=== PATIENT | female | born 1995 ===

== ENCOUNTER → 2022-01-29 13:29 | Observation (INO) ==
[2022-01-29 10:40] LABS: Bacteria,Urine Few per hpf (None-Few); Bilirubin,Urine Negative (Negative); Blood,Urine Negative (Negative); Clarity,Urine Turbid (Clear); Color,Urine Light-Yellow (Yellow); Glucose,Urine (UA) Normal (Normal); Ketones,Urine Negative (Negative); Leukocyte Esterase,Urine Large (Negative); Mucus,Urine Few per lpf (None-Few); Nitrite,Urine Negative (Negative); Protein,Urine Trace mg/dL (Neg-Trace); RBC,Urine 0-3 per hpf (0-3); Specific Gravity,Urine 1.014 (1.010-1.025); Squamous Epithelial Cell,Urine Moderate per hpf (None-Few); Urobilinogen,Urine Normal (Normal)
[2022-01-29 11:48] LABS: Protein/Creatinine Ratio,Urine 0.21 mg/mg (0.00-0.20)
[2022-01-29 12:04] LABS: Basophils # 0.1 K/mcL (0.0-0.2); Basophils % 0.3 %; Eosinophils # 0.2 K/mcL (0.0-0.6); Eosinophils % 1.4 %; Hematocrit 38.4 % (35.3-44.9); Hemoglobin 12.6 g/dL (11.5-15.4); Immature Granulocytes % 1.1 % (0-4); Lymphocytes # 2.7 K/mcL (0.6-4.6); Lymphocytes % 17.3 %; Mean Corpuscular HGB Conc 32.8 g/dL (31.6-35.5); Mean Corpuscular Hemoglobin 27.9 pg (28.0-33.3); Mean Platelet Volume 9.6 fL (9.4-12.4); Monocytes # 0.6 K/mcL (0.0-1.3); Monocytes % 3.6 %; Platelet Count 262 K/mcL (140-400); Red Blood Count 4.52 M/mcL (3.82-4.97); Red Cell Distribution Width 12.9 % (11.5-14.5); Segmented Neutrophils % 76.3 %; White Blood Count 15.7 K/mcL (4.3-11.1)
[2022-01-29 12:36] LABS: Alanine Aminotransferase 20 Units/L (7-52); Aspartate Amino Transferase 15 Units/L (13-39); BUN/Creatinine Ratio 13 (6-26); Blood Urea Nitrogen 7 mg/dL (6-20); Lactate Dehydrogenase 191 Units/L (140-271); Uric Acid 4.8 mg/dL (2.3-7.6); eGFR For African Americans > 60 (> 60); eGFR For Non-African Americans > 60 (> 60)
== END | disposition home or self-care (01) ==
LOC: 1NENULAB
PROVIDERS: ADMIT Obstetrics & Gynecology; ATTEND Obstetrics & Gynecology

== ENCOUNTER → 2022-01-31 12:14 | Observation (INO) ==
[2022-01-31 11:02] LABS: Bacteria,Urine Few per hpf (None-Few); Bilirubin,Urine Negative (Negative); Blood,Urine Negative (Negative); Clarity,Urine Turbid (Clear); Color,Urine Light-Yellow (Yellow); Glucose,Urine (UA) Normal (Normal); Ketones,Urine Negative (Negative); Leukocyte Esterase,Urine Large (Negative); Nitrite,Urine Negative (Negative); PH,Urine 7.5 pH Units (5.0-8.0); Protein,Urine Negative (Neg-Trace); RBC,Urine 0-3 per hpf (0-3); Specific Gravity,Urine 1.008 (1.010-1.025); Squamous Epithelial Cell,Urine Few per hpf (None-Few); Urobilinogen,Urine Normal (Normal)
[2022-01-31 11:15] LABS: Basophils # 0.1 K/mcL (0.0-0.2); Basophils % 0.4 %; Eosinophils # 0.2 K/mcL (0.0-0.6); Eosinophils % 1.8 %; Hematocrit 38.8 % (35.3-44.9); Hemoglobin 12.5 g/dL (11.5-15.4); Immature Granulocytes % 1.1 % (0-4); Lymphocytes # 2.6 K/mcL (0.6-4.6); Lymphocytes % 19.4 %; Mean Corpuscular HGB Conc 32.2 g/dL (31.6-35.5); Mean Corpuscular Hemoglobin 27.2 pg (28.0-33.3); Mean Corpuscular Volume 84.5 fL (83.0-100.0); Mean Platelet Volume 9.6 fL (9.4-12.4); Monocytes # 0.6 K/mcL (0.0-1.3); Monocytes % 4.2 %; Neutrophils # 9.7 K/mcL (1.6-8.9); Platelet Count 280 K/mcL (140-400); Red Blood Count 4.59 M/mcL (3.82-4.97); Red Cell Distribution Width 12.9 % (11.5-14.5); Segmented Neutrophils % 73.1 %; White Blood Count 13.3 K/mcL (4.3-11.1)
[2022-01-31 11:20] LABS: Protein/Creatinine Ratio,Urine 0.18 mg/mg (0.00-0.20)
[2022-01-31 11:30] LABS: Alanine Aminotransferase 22 Units/L (7-52); Aspartate Amino Transferase 16 Units/L (13-39); BUN/Creatinine Ratio 13 (6-26); Blood Urea Nitrogen 7 mg/dL (6-20); Lactate Dehydrogenase 203 Units/L (140-271); Uric Acid 4.6 mg/dL (2.3-7.6); eGFR For African Americans > 60 (> 60); eGFR For Non-African Americans > 60 (> 60)
[~2022-01-31 12:14] MED LIST: Nitrofurantoin (BID) 100 MG CAPSULE PO ONE; Nitrofurantoin (BID) 100 MG CAPSULE PO SCH
== END | disposition home or self-care (01) ==
LOC: 1NENULAB
PROVIDERS: ADMIT Student in an Organized Health Care Education/Training Program; ATTEND Student in an Organized Health Care Education/Training Program

== ENCOUNTER → 2022-02-07 13:05 | Observation (INO) ==
[2022-02-07 01:44] LABS: Bacteria,Urine Few per hpf (None-Few); Basophils % 0.3 %; Bilirubin,Urine Negative (Negative); Blood,Urine Negative (Negative); Clarity,Urine Clear (Clear); Color,Urine Yellow (Yellow); Eosinophils # 0.3 K/mcL (0.0-0.6); Eosinophils % 1.9 %; Glucose,Urine (UA) Normal (Normal); Hematocrit 36.5 % (35.3-44.9); Hemoglobin 11.9 g/dL (11.5-15.4); Immature Granulocytes % 0.8 % (0-4); Ketones,Urine 20 mg/dL (Negative); Leukocyte Esterase,Urine Moderate (Negative); Lymphocytes # 2.7 K/mcL (0.6-4.6); Lymphocytes % 18.1 %; Mean Corpuscular HGB Conc 32.6 g/dL (31.6-35.5); Mean Corpuscular Hemoglobin 27.6 pg (28.0-33.3); Mean Corpuscular Volume 84.7 fL (83.0-100.0); Mean Platelet Volume 10.3 fL (9.4-12.4); Monocytes # 0.6 K/mcL (0.0-1.3); Monocytes % 3.8 %; Mucus,Urine Few per lpf (None-Few); Neutrophils # 11.4 K/mcL (1.6-8.9); Nitrite,Urine Negative (Negative); PH,Urine 6.5 pH Units (5.0-8.0); Platelet Count 274 K/mcL (140-400); Protein,Urine Trace mg/dL (Neg-Trace); RBC,Urine 0-3 per hpf (0-3); Red Blood Count 4.31 M/mcL (3.82-4.97); Red Cell Distribution Width 13.2 % (11.5-14.5); Segmented Neutrophils % 75.1 %; Squamous Epithelial Cell,Urine Few per hpf (None-Few); Urobilinogen,Urine Normal (Normal); White Blood Count 15.2 K/mcL (4.3-11.1)
[2022-02-07 01:52] LABS: Protein/Creatinine Ratio,Urine 0.11 mg/mg (0.00-0.20)
[2022-02-07 02:03] LABS: Alanine Aminotransferase 20 Units/L (7-52); Aspartate Amino Transferase 15 Units/L (13-39); BUN/Creatinine Ratio 13 (6-26); Blood Urea Nitrogen 8 mg/dL (6-20); Calcium 8.7 mg/dL (8.6-10.3); Carbon Dioxide 19 mEq/L (23-29); Chloride 104 mEq/L (98-107); Glucose 97 mg/dL (70-105); Lactate Dehydrogenase 181 Units/L (140-271); Osmolality,Calculated 276 (280-300); Potassium 3.8 mEq/L (3.5-5.1); Sodium 134 mEq/L (136-145); Uric Acid 5.4 mg/dL (2.3-7.6); eGFR For African Americans > 60 (> 60); eGFR For Non-African Americans > 60 (> 60)
[~2022-02-07 13:05] MED LIST changes: +Aspirin 81 MG TAB.CHEW PO SCH; +Insulin DETEMIR 100 UNIT/ML X5UNITS SUBQ SCH; +Insulin LISPRO 300 UNITS/3 ML VIAL SUBQ ONE; +Insulin LISPRO 300 UNITS/3 ML VIAL SUBQ STA; -Nitrofurantoin (BID) 100 MG CAPSULE PO ONE; -Nitrofurantoin (BID) 100 MG CAPSULE PO SCH; +Prenatal Vit/FA 1 EACH TABLET PO SCH
== END | disposition home or self-care (01) ==
LOC: 1NENULAB
PROVIDERS: ADMIT Obstetrics & Gynecology; ATTEND Obstetrics & Gynecology

== ENCOUNTER 2022-02-22 21:56 | Inpatient (IN) ==
[2022-02-22] MEDS ORDERED: Ondansetron 4 MG/2 ML VIAL IVP PRN (22:15)
[2022-02-22] MEDS ORDERED: Famotidine 20 MG/2 ML VIAL IVP PRN (22:15)
[2022-02-22] MEDS ORDERED: Metoclopramide 10 MG/2 ML VIAL IVP PRN (22:15)
[2022-02-22] MEDS ORDERED: Naloxone 0.4 MG/ML INJ IVP PRN (22:15)
[2022-02-22] MEDS ORDERED: Azithromycin 500 MG in 0.9 % Sodium Chloride 250 ML IVPB PRN (22:15)
[2022-02-22 23:37] LABS: Basophils % 0.2 %; Eosinophils # 0.3 K/mcL (0.0-0.6); Eosinophils % 1.9 %; Hematocrit 35.2 % (35.3-44.9); Hemoglobin 11.5 g/dL (11.5-15.4); Immature Granulocytes % 0.9 % (0-4); Mean Corpuscular HGB Conc 32.7 g/dL (31.6-35.5); Mean Corpuscular Volume 85.9 fL (83.0-100.0); Mean Platelet Volume 10.5 fL (9.4-12.4); Monocytes # 0.8 K/mcL (0.0-1.3); Monocytes % 5.3 %; Neutrophils # 10.8 K/mcL (1.6-8.9); Platelet Count 243 K/mcL (140-400); Red Cell Distribution Width 13.5 % (11.5-14.5); Segmented Neutrophils % 71.7 %
[2022-02-22 23:45] LABS: Amphetamine Screen,Urine Negative ng/mL (Cutoff=1000); Barbiturate Screen,Urine Negative ng/mL (Cutoff=200); Benzodiazepines Screen,Urine Negative ng/mL (Cutoff=200); Cannabinoid Screen,Urine Negative ng/mL (Cutoff = 50); Cocaine Screen,Urine Negative ng/mL (Cutoff= 300); Opiate Screen,Urine Negative ng/mL (Cutoff=300); Phencyclidine Screen,Urine Negative ng/mL (Cutoff=25)
[2022-02-22 23:46] LABS: Protein/Creatinine Ratio,Urine 0.18 mg/mg (0.00-0.20)
[2022-02-22 23:55] LABS: Alanine Aminotransferase 20 Units/L (7-52); Aspartate Amino Transferase 16 Units/L (13-39); BUN/Creatinine Ratio 19 (6-26); Blood Urea Nitrogen 13 mg/dL (6-20); Glucose 53 mg/dL (70-105); Lactate Dehydrogenase 189 Units/L (140-271); Uric Acid 6.6 mg/dL (2.3-7.6); eGFR For African Americans > 60 (> 60); eGFR For Non-African Americans > 60 (> 60)
[2022-02-23] MEDS ORDERED: EPHEDrine 50 MG/ML VIAL IVP PRN (07:39)
[2022-02-23] MEDS: Ringers Solution, Lactated 1,000 ML IVC SCH ×2 (07:48→13:30)
[2022-02-23] MEDS: Epidural Premix (fent/bupiv) 110 ML EP SCH (07:54)
[2022-02-23] MEDS ORDERED: miSOPROStoL 25 MCG TABLET PO PRN (09:24)
[2022-02-23] MEDS: Oxytocin 30 UNIT/503 ML BAG IVC SCH (13:30)
[2022-02-23] MEDS ORDERED: *HR* FentaNYL (PF) 100 MCG/2 ML VIAL IVP ONE (20:07)
[2022-02-24] MEDS ORDERED: *HR* Nalbuphine 10 MG/ML AMPUL ONE (00:36)
[2022-02-24] MEDS: *HR* Nalbuphine 10 MG/ML AMPUL IV PRN ×2 (00:41→02:46)
[2022-02-24] MEDS: Ringers Solution, Lactated 1,000 ML IVC SCH ×3 (02:47→18:29)
[2022-02-24] MEDS: Epidural Premix (fent/bupiv) 110 ML EP SCH ×4 (09:20→18:29)
[2022-02-24] MEDS: Ampicillin 2,000 MG in 0.9 % Sodium Chloride Mini Bag 100 ML IVPB SCH ×2 (09:50→17:40)
[2022-02-24] MEDS: GENTAMICIN IVPB SCH ×2 (10:39→18:38)
[2022-02-24] MEDS: SODIUM CHLORIDE 0.9% IVPB SCH ×2 (10:39→18:38)
[2022-02-24] MEDS ORDERED: Methylergonovine 0.2 MG/ML AMPUL IM ONE (12:13)
[2022-02-24] MEDS ORDERED: Ropivacaine/PF 0.5% 30 ML VIAL ONE (13:47)
[2022-02-24] MEDS: Oxytocin 30 UNIT/503 ML BAG IVC SCH (13:48)
[2022-02-24] MEDS ORDERED: Lidocaine/EPI 1:200k 2% PF 20 ML VIAL ONE (14:47)
[2022-02-24] MEDS ORDERED: Ringers Solution, Lactated 1,000 ML ONE (14:56)
[2022-02-24] MEDS ORDERED: EPHEDrine 50 MG/ML VIAL ONE (14:59)
[2022-02-24] MEDS ORDERED: *HR* Morphine Sulfate/PF 10 MG/10 ML AMPUL ONE (15:19)
[2022-02-24] MEDS ORDERED: Ondansetron 4 MG/2 ML VIAL ONE (15:21)
[2022-02-24] MEDS ORDERED: Promethazine 6.25 MG in Water for inj. (sterile) 20 ML IVPB PRN (15:36)
[2022-02-24] MEDS ORDERED: Ondansetron 4 MG/2 ML VIAL IVP PRN ×2 (15:36→18:28)
[2022-02-24] MEDS ORDERED: *HR* HYDROmorphone PF 0.5 MG/0.5 ML SYRINGE IVP PRN (15:36)
[2022-02-24] MEDS ORDERED: Ketorolac 30 MG/ML VIAL ONE (15:49)
[2022-02-24] MEDS ORDERED: *HR* OxyCODONE Immed Rel 5 MG TABLET PO PRN (18:28)
[2022-02-24] MEDS ORDERED: Metoclopramide 10 MG/2 ML VIAL IVP PRN (18:28)
[2022-02-24] MEDS ORDERED: Oxytocin 30 UNIT/503 ML BAG IVC SCH (18:28)
[2022-02-24] MEDS: CeFAZolin 2,000 MG/120 ML BAG IVPB SCH (18:37)
[2022-02-24] MEDS ORDERED: D5% in Water 1,000 ML IVC PRN (20:46)
[2022-02-24] MEDS ORDERED: *HR* Dextrose 50 % in Water (Syg) 50 ML SYRINGE IVP PRN (20:46)
[2022-02-24] MEDS ORDERED: Dextrose Gel 15 GM/37.5 ML TUBE PO PRN ×2 (20:46)
[2022-02-24] MEDS: Ibuprofen 600 MG TABLET PO SCH (21:18)
[2022-02-24] MEDS: Simethicone 80 MG TAB.CHEW PO PRN (21:18)
[2022-02-24] MEDS: metroNIDAZOLE 500 MG TABLET PO SCH (21:19)
[2022-02-25] MEDS: Acetaminophen 325 MG TABLET PO SCH ×4 (00:12→20:38)
[2022-02-25] MEDS: Insulin LISPRO 300 UNITS/3 ML VIAL SUBQ SCH ×5 (00:18→23:11)
[2022-02-25] MEDS: Ibuprofen 600 MG TABLET PO SCH ×4 (03:02→20:38)
[2022-02-25] MEDS: CeFAZolin 2,000 MG/120 ML BAG IVPB SCH ×2 (03:02→08:43)
[2022-02-25] MEDS ORDERED: Ringers Solution, Lactated 500 ML IVC ONE (03:21)
[2022-02-25 03:27] LABS: Hematocrit 27.3 % (35.3-44.9); Mean Corpuscular HGB Conc 33.3 g/dL (31.6-35.5); Mean Corpuscular Hemoglobin 28.4 pg (28.0-33.3); Mean Corpuscular Volume 85.3 fL (83.0-100.0); Mean Platelet Volume 9.8 fL (9.4-12.4); Platelet Count 195 K/mcL (140-400); Red Cell Distribution Width 13.8 % (11.5-14.5)
[2022-02-25 03:30] LABS: Hemoglobin 9.1 g/dL (11.5-15.4); White Blood Count 24.6 K/mcL (4.3-11.1)
[2022-02-25] MEDS ORDERED: Ringers Solution, Lactated 1,000 ML IVC SCH (03:30)
[2022-02-25 03:52] LABS: Lymphocytes # 2.5 K/mcL (0.6-4.6); Neutrophils # 21.2 K/mcL (1.6-8.9)
[2022-02-25 03:53] LABS: Platelet Estimate Slight Decrease (Normal)
[2022-02-25] MEDS ORDERED: *HR* Enoxaparin 80 MG/0.8 ML SYRINGE SQ SCH (05:00)
[2022-02-25] MEDS: Prenatal Vit/FA 1 EACH TABLET PO SCH (08:42)
[2022-02-25] MEDS: metroNIDAZOLE 500 MG TABLET PO SCH ×3 (08:42→20:38)
[2022-02-25] MEDS ORDERED: Prenatal Vit/FA 1 EACH TABLET PO SCH (09:00)
[2022-02-25] MEDS ORDERED: Insulin LISPRO 300 UNITS/3 ML VIAL SUBQ SCH (12:00)
[2022-02-25] MEDS: *HR* Enoxaparin 80 MG/0.8 ML SYRINGE SQ SCH (18:17)
[2022-02-26] MEDS: Acetaminophen 325 MG TABLET PO SCH ×4 (02:32→21:17)
[2022-02-26] MEDS: Ibuprofen 600 MG TABLET PO SCH ×4 (02:32→21:15)
[2022-02-26] MEDS: *HR* Enoxaparin 80 MG/0.8 ML SYRINGE SQ SCH ×2 (06:01→18:24)
[2022-02-26] MEDS: Prenatal Vit/FA 1 EACH TABLET PO SCH (08:36)
[2022-02-26] MEDS: Simethicone 80 MG TAB.CHEW PO PRN (08:37)
[2022-02-26] MEDS: metroNIDAZOLE 500 MG TABLET PO SCH ×2 (08:37→15:36)
[2022-02-27] MEDS: Ibuprofen 600 MG TABLET PO SCH (04:47)
[2022-02-27] MEDS: Acetaminophen 325 MG TABLET PO SCH (04:48)
[2022-02-27] MEDS: *HR* Enoxaparin 80 MG/0.8 ML SYRINGE SQ SCH (06:23)
[2022-02-27 07:02] VITALS: BP 150/82; TEMP 98.4; O2SAT 98
[2022-02-27] MEDS: Prenatal Vit/FA 1 EACH TABLET PO SCH (08:53)
[2022-02-27 10:31] VITALS: PULSE 76
== END 2022-02-27 11:30 | disposition home or self-care (01) | DRG 788 ==
LOC: 1NENULAB 21:56 → 1NENUOBS 02-24 18:05
PROVIDERS: ADMIT Student in an Organized Health Care Education/Training Program; ATTEND Student in an Organized Health Care Education/Training Program